=== PATIENT | female | born 2000 | race Caucasian/White ===

== ENCOUNTER 2024-11-11 13:40 | Outpatient (CLI) | payer OTHER | END 2024-11-11 14:47 | disposition home or self-care (01) | LOC: NST 13:40 | PROVIDERS: ATTEND Obstetrics & Gynecology Maternal & Fetal Medicine | DX: Z34.82 Encounter for supervision of other normal pregnancy, second trimester (principal) ==

== ENCOUNTER → 2024-12-02 | Outpatient (CLI) | payer OTHER | END | disposition home or self-care (01) | LOC: NST 13:55 | PROVIDERS: ATTEND Obstetrics & Gynecology Maternal & Fetal Medicine | DX: Z34.83 Encounter for supervision of other normal pregnancy, third trimester (principal) ==

== ENCOUNTER 2024-12-09 12:52 | Outpatient (CLI) | payer OTHER | END 2024-12-09 13:42 | disposition home or self-care (01) | LOC: NST 12:52 | PROVIDERS: ATTEND Obstetrics & Gynecology | DX: Z34.83 Encounter for supervision of other normal pregnancy, third trimester (principal) ==

== ENCOUNTER 2024-12-16 12:54 | Outpatient (CLI) | payer OTHER | END 2024-12-16 13:50 | disposition home or self-care (01) | LOC: NST 12:54 | PROVIDERS: ATTEND Obstetrics & Gynecology Maternal & Fetal Medicine | DX: Z34.83 Encounter for supervision of other normal pregnancy, third trimester (principal) ==

== ENCOUNTER 2024-12-28 11:15 | Inpatient (IN) | payer OTHER ==
[~2024-12-28] VITALS: Ht 152.4 cm; Wt 79.8 kg
[2024-12-28 11:54] VITALS: BP 108/74
[2024-12-28] MEDS ORDERED: INTEGRA PLUS C1 EACH PO (12:10)
[2024-12-28] MEDS ORDERED: PRENATAL TABLE1 EAC4 PO (12:10)
[2024-12-28 15:19] VITALS: BP 110/76
[2024-12-28 16:31] VITALS: BP 110/76
[2024-12-28] MEDS ORDERED: MAGNESIUM SULFATE IN WATER 500 ML IV SCH (17:00)
[2024-12-28 18:23] LABS: BASO % 0.2 % (0.1-1.2); EOS # 0.05 (0.04-0.54); EOS % 0.4 % (0.7-7.0); LYMPH # 2.98 (1.18-3.74); LYMPH % 23.2 % (19.3-53.1); MEAN PLATELET VOLUME 12.10 fl (9.4-12.4); MONO # 0.82 (0.24-0.82); MONO % 6.4 % (4.7-12.5); NEUT # 8.81 (1.56-6.13); NEUT % 68.8 % (34.0-71.1); RED CELL DISTRIBUTION WIDTH 18.3 % (11.6-14.4)
[2024-12-28] MEDS ORDERED: RINGERS SOLUTION,LACTATED 1,000 ML IV SCH (18:30)
[2024-12-28 18:46] LABS: ALT/SGPT 17.0 U/L (12-78); AST/SGOT 11.0 U/L (15-37); BILIRUBIN TOTAL 0.32 mg/dL (0.3-1.2); BUN CREA RATIO 14.0 (7.0-25.0); CREATININE SERUM 0.44 mg/dL (0.55-1.02); GFR 174.23; GLOBULINA 4.0 G/DL (2.4-3.5); GLUCOSE FASTING 116.0 mg/dL (65-100); OSMOLALITY SERUM 274.0 MOSM/KG (275-295)
[2024-12-28 19:38] VITALS: BP 109/69
[2024-12-28 23:35] VITALS: BP 105/69
[2024-12-29 00:21] LABS: URINE APPEARANCE Clear; URINE BILIRRUBIN Negative (NEGATIVE); URINE BLOOD Negative; URINE COLOR Yellow; URINE GLUCOSE Negative (NEGATIVE); URINE KETONE 15 (NEGATIVE); URINE LEUKOCYTE Negative; URINE NITRATE Negative; URINE PROTEIN Negative (NEGATIVE); URINE UROBILINOGEN 0.2 E.U./dl
[2024-12-29 00:22] LABS: URINE BACTERIA 527.8 uL (0.0-1933); URINE EPITHELIAL CELLS 18.2 uL (0.0-38.8); URINE RBC 4.2 uL (0.0-20.8); URINE WBC 20.7 uL (0.0-23.2)
[2024-12-29 00:24] LABS: URINE CAST 0.00 uL (0.0-1.40)
[2024-12-29 04:00] VITALS: BP 104/70
[2024-12-29 06:18] VITALS: BP 104/69; O2SAT 99
[2024-12-29] MEDS ORDERED: BETAMETHASONE ACETATE,SOD PHOS 30 MG/5 ML ML IM SCH (09:00)
[2024-12-29 11:08] VITALS: BP 112/72
[2024-12-29 15:09] VITALS: BP 103/65
[2024-12-29 20:00] VITALS: BP 100/64
[2024-12-29 23:21] VITALS: BP 114/72; O2SAT 99
[2024-12-30 03:00] VITALS: BP 117/73; O2SAT 99
[2024-12-30 06:44] VITALS: BP 110/67; O2SAT 99
[2024-12-30 08:57] VITALS: BP 107/68; O2SAT 99
[2024-12-30] MEDS ORDERED: NIFEDIPINE 60 MG TAB.SA.OSM PO SCH (09:04)
[2024-12-30 09:26] VITALS: BP 120/74; O2SAT 98
[2024-12-30 17:07] VITALS: BP 117/72
[2024-12-31] VITALS: BP 106/65
[2024-12-31 08:00] VITALS: BP 109/73
[2024-12-31 16:32] VITALS: BP 107/70
[2025-01-01 01:40] VITALS: BP 102/60
[2025-01-01 08:00] VITALS: BP 116/77
[2025-01-01 16:00] VITALS: BP 102/64
[2025-01-02 00:18] VITALS: BP 102/60
[2025-01-02 08:27] VITALS: BP 107/73
[2025-01-02 16:23] VITALS: BP 103/63
[2025-01-03] VITALS: BP 102/64
[2025-01-03 08:08] VITALS: BP 91/60
== END 2025-01-03 15:49 | disposition home or self-care (01) | DRG 833 ==
LOC: NST 11:15 → OBS/DEL 11:15 → LDR 16:36 → OB/GYN 12-30 08:29
PROVIDERS: Obstetrics & Gynecology; ADMIT Obstetrics & Gynecology Maternal & Fetal Medicine; ATTEND Obstetrics & Gynecology Maternal & Fetal Medicine
PROC: 4A1HXCZ Monitoring of Products of Conception, Cardiac Rate, External Approach (ICD-10-PCS; principal; 2024-12-28)
PROC: BY4GZZZ Ultrasonography of Third Trimester, Multiple Gestation (ICD-10-PCS; 2024-12-28)
PROC: BU4CZZZ Ultrasonography of Uterus and Ovaries (ICD-10-PCS; 2024-12-28)
PROC: BY47ZZZ Ultrasonography of Fetal Umbilical Cord (ICD-10-PCS; 2024-12-28)
DX: O60.03 Preterm labor without delivery, third trimester (principal); O36.8132 Decreased fetal movements, third trimester, fetus 2; O26.843 Uterine size-date discrepancy, third trimester; O26.853 Spotting complicating pregnancy, third trimester; O36.5932 Maternal care for other known or suspected poor fetal growth, third trimester, fetus 2; O30.033 Twin pregnancy, monochorionic/diamniotic, third trimester; Z3A.32 32 weeks gestation of pregnancy

== ENCOUNTER 2025-01-07 10:54 | Outpatient (CLI) | payer OTHER ==
[~2025-01-07 10:54] MED LIST: INTEGRA PLUS C1 EACH PO; PRENATAL TABLE1 EAC4 PO
== END 2025-01-07 12:11 | disposition home or self-care (01) ==
LOC: NST 10:54
PROVIDERS: ATTEND Obstetrics & Gynecology Maternal & Fetal Medicine
DX: Z34.83 Encounter for supervision of other normal pregnancy, third trimester (principal)

== ENCOUNTER 2025-01-18 22:28 | Outpatient (CLI) | payer OTHER ==
[2025-01-18 21:40] VITALS: BP 118/81
[2025-01-18] MEDS ORDERED: ACETAMINOPHEN 500 MG GEL..CAP PO PRN (22:45)
[2025-01-18] MEDS ORDERED: RINGERS SOLUTION,LACTATED 1,000 ML IV SCH (22:45)
[2025-01-18 22:55] LABS: BASO % 0.2 % (0.1-1.2); EOS # 0.07 (0.04-0.54); EOS % 0.7 % (0.7-7.0); LYMPH # 3.01 (1.18-3.74); LYMPH % 29.7 % (19.3-53.1); MEAN PLATELET VOLUME 10.80 fl (9.4-12.4); MONO # 0.74 (0.24-0.82); MONO % 7.3 % (4.7-12.5); NEUT # 6.22 (1.56-6.13); NEUT % 61.4 % (34.0-71.1); RED CELL DISTRIBUTION WIDTH 17.1 % (11.6-14.4); URINE APPEARANCE Clear; URINE BILIRRUBIN Negative (NEGATIVE); URINE BLOOD Negative; URINE COLOR Yellow; URINE KETONE Trace (NEGATIVE); URINE LEUKOCYTE Trace; URINE NITRATE Negative; URINE PROTEIN 30 (NEGATIVE); URINE UROBILINOGEN 0.2 E.U./dl
[2025-01-18 22:59] LABS: URINE BACTERIA 872.4 uL (0.0-1933); URINE EPITHELIAL CELLS 31.3 uL (0.0-38.8); URINE RBC 4.5 uL (0.0-20.8); URINE WBC 42.2 uL (0.0-23.2)
[2025-01-18 23:00] LABS: URINE CAST 0.14 uL (0.0-1.40); URINE GLUCOSE >=1000 MG/DL (NEGATIVE)
[2025-01-18 23:15] LABS: INR 0.94
[2025-01-18] MEDS ORDERED: PROMETHAZINE HCL 25 MG/ML AMPUL IV ONE (23:15)
[2025-01-18 23:20] LABS: ALT/SGPT 15.0 U/L (12-78); AST/SGOT 10.0 U/L (15-37); BILIRUBIN TOTAL 0.15 mg/dL (0.3-1.2); BUN CREA RATIO 12.0 (7.0-25.0); CREATININE SERUM 0.58 mg/dL (0.55-1.02); GFR 126.67; GLOBULINA 3.7 G/DL (2.4-3.5); OSMOLALITY SERUM 280.0 MOSM/KG (275-295)
[2025-01-18 23:23] VITALS: BP 117/76; O2SAT 99
[2025-01-18 23:25] LABS: GLUCOSE FASTING 207.0 mg/dL (65-100)
[2025-01-19 04:12] VITALS: BP 128/79
== END 2025-01-19 08:18 | disposition home or self-care (01) ==
LOC: OBS/DEL 22:28
PROVIDERS: ATTEND Obstetrics & Gynecology Gynecology
DX: O26.893 Other specified pregnancy related conditions, third trimester (principal); R51.9 Headache, unspecified; R10.9 Unspecified abdominal pain; Z3A.35 35 weeks gestation of pregnancy

== ENCOUNTER 2025-01-20 14:15 | Inpatient (IN) | payer OTHER ==
[~2025-01-20] VITALS: Ht 152.4 cm; Wt 88.0 kg
[2025-01-22 01:14] VITALS: BP 122/86
[2025-01-22] MEDS ORDERED: RINGERS SOLUTION,LACTATED 1,000 ML IV SCH (01:45)
[2025-01-22 02:30] LABS: BASO % 0.2 % (0.1-1.2); EOS # 0.07 (0.04-0.54); EOS % 0.6 % (0.7-7.0); LYMPH # 2.93 (1.18-3.74); LYMPH % 27.2 % (19.3-53.1); MEAN PLATELET VOLUME 11.70 fl (9.4-12.4); MONO # 0.78 (0.24-0.82); MONO % 7.2 % (4.7-12.5); NEUT # 6.90 (1.56-6.13); NEUT % 64.2 % (34.0-71.1); RED CELL DISTRIBUTION WIDTH 17.2 % (11.6-14.4)
[2025-01-22 03:01] LABS: INR 0.94
[2025-01-22 03:06] LABS: ALT/SGPT 14.0 U/L (12-78); AST/SGOT 11.0 U/L (15-37); BILIRUBIN TOTAL 0.14 mg/dL (0.3-1.2); BUN CREA RATIO 16.0 (7.0-25.0); CREATININE SERUM 0.62 mg/dL (0.55-1.02); GFR 117.28; GLOBULINA 3.5 G/DL (2.4-3.5); GLUCOSE FASTING 131.0 mg/dL (65-100); OSMOLALITY SERUM 277.0 MOSM/KG (275-295)
[2025-01-22 03:13] VITALS: BP 124/81
[2025-01-22] MEDS ORDERED: MORPHINE SULFATE 4 MG/ML CARTRIDGE IV ONE (03:15)
[2025-01-22] MEDS ORDERED: MORPHINE SULFATE 4 MG/ML CARTRIDGE IV PRN ×2 (03:30→05:45)
[2025-01-22] MEDS ORDERED: OXYTOCIN 1,000 ML IV SCH (05:45)
[2025-01-22] MEDS ORDERED: RINGERS SOLUTION,LACTATED 1,000 ML IV.SOLN IV ONE (06:00)
[2025-01-22] MEDS ORDERED: ERYTHROMYCIN BASE OPHT 1GM EACH TUBE OP ONE (06:30)
[2025-01-22] MEDS ORDERED: OXYTOCIN 10 UNITS/ML VIAL IV ONE (06:30)
[2025-01-22] MEDS ORDERED: MORPHINE SULFATE 4 MG/ML VIAL IV ONE ×2 (07:30→08:30)
[2025-01-22 08:46] VITALS: BP 116/70; O2SAT 98
[2025-01-22] MEDS ORDERED: OxyCODONE HCL 5 MG TABLET (ROXICODONE) PO SCH ×2 (10:15→17:00)
[2025-01-22 16:00] VITALS: BP 112/74
[2025-01-23 00:56] VITALS: BP 111/71
[2025-01-23 08:41] VITALS: BP 105/69
[2025-01-23 14:44] VITALS: BP 112/76
[2025-01-24] VITALS: BP 120/81
[2025-01-24 08:46] VITALS: BP 127/86; O2SAT 98
[2025-01-24 10:19] LABS: COVID-19 AG NEGATIVE (NEGATIVE)
[2025-01-24 12:53] LABS: BASO % 0.3 % (0.1-1.2); EOS # 0.14 (0.04-0.54); EOS % 0.6 % (0.7-7.0); LYMPH # 2.79 (1.18-3.74); LYMPH % 11.7 % (19.3-53.1); MEAN PLATELET VOLUME 11.40 fl (9.4-12.4); MONO # 1.56 (0.24-0.82); MONO % 6.6 % (4.7-12.5); NEUT # 19.01 (1.56-6.13); NEUT % 79.8 % (34.0-71.1); RED CELL DISTRIBUTION WIDTH 18.5 % (11.6-14.4)
[2025-01-24] MEDS ORDERED: GABAPENTIN 300 MG CAPSULE PO SCH (13:00)
[2025-01-24 13:39] LABS: ALT/SGPT 15.0 U/L (12-78); AST/SGOT 16.0 U/L (15-37); BILIRUBIN TOTAL 0.31 mg/dL (0.3-1.2); BUN CREA RATIO 11.0 (7.0-25.0); CREATININE SERUM 0.62 mg/dL (0.55-1.02); GFR 117.28; GLOBULINA 3.7 G/DL (2.4-3.5); GLUCOSE FASTING 143.0 mg/dL (65-100); OSMOLALITY SERUM 284.0 MOSM/KG (275-295)
[2025-01-24 15:47] VITALS: BP 106/72
[2025-01-25 00:06] VITALS: BP 119/80
[2025-01-25 08:09] VITALS: BP 122/87
[2025-01-25] MEDS ORDERED: LACTULOSE 20 G/30 ML BLIST.PACK PO NR (09:10)
[2025-01-25] MEDS ORDERED: MAGNESIUM HYDROXIDE 30 ML BLIST.PACK PO NR (09:10)
[2025-01-25] MEDS ORDERED: MINERAL OIL 30 ML BLIST.PACK PO NR (09:10)
[2025-01-25 16:00] VITALS: BP 104/70
[2025-01-26 01:04] VITALS: BP 123/83
[2025-01-26 08:47] VITALS: BP 117/80
== END 2025-01-26 17:33 | disposition home or self-care (01) | DRG 786 ==
LOC: LDR 01-22 01:38 → OB/GYN 01-22 05:58 → LDR 01-27 14:15
PROVIDERS: Obstetrics & Gynecology; ADMIT Obstetrics & Gynecology Maternal & Fetal Medicine; ATTEND Obstetrics & Gynecology Maternal & Fetal Medicine
PROC: 4A1HXCZ Monitoring of Products of Conception, Cardiac Rate, External Approach (ICD-10-PCS; 2025-01-22)
PROC: 10D00Z1 Extraction of Products of Conception, Low, Open Approach (ICD-10-PCS; principal; 2025-01-22 07:00)
DX: O32.1XX1 Maternal care for breech presentation, fetus 1 (principal); O60.14X2 Preterm labor third trimester with preterm delivery third trimester, fetus 2; O30.043 Twin pregnancy, dichorionic/diamniotic, third trimester; Z3A.36 36 weeks gestation of pregnancy; Z37.2 Twins, both liveborn